=== PATIENT | female | born 1955 | race Caucasian/White ===

== ENCOUNTER 2020-01-12 02:08 | Outpatient (CLI) | payer BC, SELFPAY ==
--- NOTE | 2020-01-12 | DI.US_ITS ---
EXAM: MG MAMMO DIAGNOSTIC UNI AND US BREAST LT LIMITED CLINICAL HISTORY: H/O LT BREAST CA WITH LUMPECTOMY, NOW NEW LT BREAST LUMP. COMPARISON: Mammogram dated July, from [facility], [facility] in [place], [place] TECHNIQUE: Craniocaudal and mediolateral oblique Full Field Digital Mammography views of the Left br east with Computer Aided Diagnosis followed by Tomosynthesis and spot compression views with tomograp hy of the upper outer quadrant. FINDINGS: Mammography/Tomosynthesis: The patient notes a palpable abnormality near the lumpectomy scar in the upper outer quadrant of the left breast in the anterior tissue. There are surgical clips related to previous lumpectomy seen in t he upper outer quadrant. There is a new mainly circumscribed mass corresponding to the palpable abno rmality, measuring 12 x 15 millimeters. There are no associated calcifications. There is mild stabl e skin thickening. Breast US: The palpable abnormality is in the region of the lumpectomy scar, in the 1 o'clock position, 3 cm fro m the nipple. It corresponds to a hypoechoic mass with mild vascularity measuring 1.5 x 1.1 x 1.1 cm . It is taller than wide. The borders are somewhat lobulated. There is an internal area of lower e chogenicity. Ductal dilation: None. IMPRESSION: Palpable left abnormality corresponds to a 1.5 cm solid mass. Biopsy is recommended for further eval uation. This could be performed under ultrasound guidance. BI-RADS Category 4 - Suspicious Abnormality: Biopsy should be considered Breast Density - Category B - Scattered areas of fibroglandular density A negative radiographic report should not delay biopsy if a dominant or clinically suspicious mass is present. Up to ten percent of cancers are not identified on mammography. A negative report may reinforce clinical impression. Adenosis and dense breasts may obscure an underlying neoplasm. False positive reports average 6 to 10%. Patient will receive a letter notifying them of these results.
== END 2020-01-12 02:28 ==
PROVIDERS: PCP Nurse Practitioner Family; Visit Provider Nurse Practitioner Family
DX: N63.21 Unspecified lump in the left breast, upper outer quadrant (principal); Z85.3 Personal history of malignant neoplasm of breast; R92.2 Inconclusive mammogram
CPT/HCPCS: 76642; 77061; 77065; G0279